=== PATIENT | male | born 1955 | race Caucasian/White ===

== ENCOUNTER 2017-05-25 14:52 | Emergency (ER) | payer OTHER ==
[2017-05-25 15:18] VITALS: BP 127/61; PULSE 95; RESP 18; TEMP 98; O2SAT 99
[2017-05-25 17:15] VITALS: BP 139/93; PULSE 90; RESP 15; O2SAT 97
[2017-05-25] MEDS ORDERED: OMEP10CA PO (17:32)
[2017-05-25] MEDS ORDERED: PRAV20TA2 PO (17:32)
[2017-05-25] MEDS ORDERED: RAMI5CAP PO (17:32)
[2017-05-25] MEDS ORDERED: ASPI-516 CHEW (17:32)
--- NOTE | 2017-05-25 18:28 | PD ---
HPI Chief Complaint: Respiratory Symptoms Time Seen by Provider: 18:07 Travel History International Travel<30 days: No Contact w/Intl Traveler<30days: No Traveled to known affect area: No History of Present Illness HPI 61yo M with PMH of anxiety, aortic aneurysm that is being monitored at 3cm and Tourett's syndrome here with c/o not being able to breathe. Said he has been feeling like this on and off for 2 years. Said he called his psychiatrist 2 days ago and was told to stop his risperdal since it was not helping. However, he did not prescribe him any other medication. Pt has appointment with his psychiatrist in August. Denies any fever, chest pain, sob, n/v, abdominal pain, focal weakness or numbness. Pt keeps saying he just needs something to calm him down. PFSH Past Medical History Anxiety: Yes Cardiovascular Problems: Yes (AORTIC ANEURYSM) Past Surgical History Joint Replacement: Yes (RIGHT HIP REP) Tonsillectomy: Yes Social History Alcohol Use: No (QUIT MAR) Tobacco Use: No Substance Use: No Allergies-Medications (Allergen,Severity, Reaction): Coded Allergies: No Known Allergies (Unverified , 05/25/17) Reported Meds & Prescriptions Reported Meds & Active Scripts Active Vistaril (Hydroxyzine Pamoate) 50 Mg Cap 50 Mg PO BID 5 Days Reported Pravastatin 20 Mg Tab 20 Mg PO DAILY Omeprazole 10 Mg Cap 10 Mg PO DAILY Ramipril 5 Mg Cap 5 Mg PO DAILY Aspirin 81 Mg Chew 81 Mg CHEW DAILY Review of Systems Except as stated in HPI: all other systems reviewed are Neg Physical Exam Narrative GENERAL: 61 SKIN: Focused skin assessment warm/dry. HEAD: Atraumatic. Normocephalic. EYES: Pupils equal and round. No scleral icterus. No injection or drainage. ENT: No nasal bleeding or discharge. Mucous membranes pink and moist. NECK: Trachea midline. No JVD. CARDIOVASCULAR: Regular rate and rhythm. No murmur appreciated. RESPIRATORY: No accessory muscle use. Clear to auscultation. Breath sounds equal bilaterally. GASTROINTESTINAL: Abdomen soft, non-tender, nondistended. Hepatic and splenic margins not palpable. MUSCULOSKELETAL: No obvious deformities. No clubbing. No cyanosis. No edema. NEUROLOGICAL: Awake and alert. No obvious cranial nerve deficits. Motor grossly within normal limits. Normal speech. PSYCHIATRIC: Appropriate mood and affect; insight and judgment normal. Data Data Last Documented VS Vital Signs Date Time Temp Pulse Resp B/P (MAP) Pulse Ox O2 Delivery O2 Flow Rate FiO2 05/25/17 20:21 05/25/17 17:15 96 05/25/17 17:15 15 97 Room Air 05/25/17 15:18 98.0 Orders Orders Electrocardiogram (05/25/17 ) Lorazepam (Ativan) (05/25/17 18:30) Chest, Single Ap (05/25/17 ) Ed Discharge Order (05/25/17 19:30) [facility] Medical Decision Making Medical Screen Exam Complete: Yes Emergency Medical Condition: Yes Interpretation(s) EKG: NSR 91bpm. LAD. RBBB. Differential Diagnosis Anxiety vs. pneumonia vs. bronchitis Narrative Course 61yo M with history of anxiety here with symptoms consistent with panic attack. Pt given ativan 1mg PO and feels better. CXR negative. Vital signs normal. Will give him something for anxiety for a few days. Pt to follow up with psychiatrist. Return precautions given. Diagnosis Primary Impression: Anxiety Patient Instructions: General Instructions Departure Forms: Tests/Procedures Additional Instructions: Please follow up with your psychiatrist in 2-3 days. Return to the ED if symptoms worsen. Med/Other Pt SpecificInfo: Prescription(s) given Scripts Hydroxyzine Pamoate (Vistaril) 50 Mg Cap 50 MG PO BID for Anxiety for 5 Days, #10 CAP 0 Refills Prov: Gauri Roldan 05/25/17 Disposition: 01 DISCHARGE HOME Condition: Stable RoldanShilpa katztangela DONG May 25, 2017 18:28
[2017-05-25] MEDS ORDERED: LORazepam 1 MG TAB PO ONE (18:30)
--- NOTE | 2017-05-25 19:13 | RADRPT ---
EXAM DATE/TIME: 05/25/2017 18:29 [facility] COMPARISON: No previous studies available for comparison. INDICATIONS : Shortness of breath. MEDICAL HISTORY : None. SURGICAL HISTORY : None. ENCOUNTER: Initial ACUITY: 1 day PAIN SCORE: 0/10 LOCATION: Bilateral chest FINDINGS: A single view of the chest demonstrates the lungs to be symmetrically aerated without evidence of mas s, infiltrate or effusion. The cardiomediastinal contours are unremarkable. Osseous structures are intact. CONCLUSION: No acute disease. Tom Coates MD on May 25, 2017 at 19:10 Board Certified Radiologist. This report was verified electronically.
[2017-05-25] MEDS ORDERED: VIST50CA PO (19:19)
--- NOTE | 2017-05-26 19:22 | EKG ---
Date Performed: 05/25/2017 Time Performed: 17:28:09 PTAGE: 61 years EKG: Sinus rhythm RIGHT BUNDLE BRANCH BLOCK LEFT ANTERIOR FASCICULAR BLOCK MODERATE VOLTAGE CRITERIA FOR LVH, CONSIDER NORMAL VARIANT POSSIBLE SEPTAL MYOCARDIAL INFARCTION ABNORMAL ECG NO PREVIOUS TRACING DOCTOR: Stephanie Bro Interpretating Date/Time 05/26/2017 19:18:51
== END 2017-05-25 20:52 | disposition home or self-care (01) ==
LOC: NEPE 14:52
DX: F41.0 Panic disorder [episodic paroxysmal anxiety] (principal); F41.9 Anxiety disorder, unspecified; I45.10 Unspecified right bundle-branch block; Z79.82 Long term (current) use of aspirin; Z79.899 Other long term (current) drug therapy
CPT/HCPCS: 71045; 93005

== ENCOUNTER 2017-05-28 12:41 | Emergency (ER) | payer OTHER ==
[~2017-05-28 12:41] MED LIST: ASPI-516 CHEW; OMEP10CA PO; PRAV20TA2 PO; RAMI5CAP PO; VIST50CA PO
[2017-05-28 12:43] VITALS: BP 157/97; PULSE 91; RESP 24; TEMP 97.8; O2SAT 100
--- NOTE | 2017-05-28 13:16 | RADRPT ---
EXAM DATE/TIME: 05/28/2017 13:06 [facility] COMPARISON: No previous studies available for comparison. INDICATIONS : Short of breath with wheezing MEDICAL HISTORY : Congestive heart failure. SURGICAL HISTORY : None. ENCOUNTER: Initial ACUITY: 1 day PAIN SCORE: 110 LOCATION: Bilateral chest FINDINGS: PA and lateral views of the chest demonstrate the lungs to be symmetrically aerated without evidence of mass, infiltrate or effusion. The cardiomediastinal contours are unremarkable. Osseous structure s are intact. CONCLUSION: No acute disease. Claudio Wright MD on May 28, 2017 at 13:13 Board Certified Radiologist. This report was verified electronically.
[2017-05-28 14:56] LABS: AUTOMATED NEUTROPHIL # 6.2 TH/MM3 (1.8-7.7); BASOPHIL # 0.1 TH/MM3 (0-0.2); EOSINOPHIL # 0.1 TH/MM3 (0-0.4); EOSINOPHIL % 1.3 % (0.0-4.0); HEMATOCRIT 47.8 % (39.0-51.0); HEMOGLOBIN 17.3 GM/DL (13.0-17.0); LYMPH % 17.6 % (9.0-44.0); LYMPHOCYTE # 1.5 TH/MM3 (1.0-4.8); MEAN CELL VOLUME 86.1 FL (80.0-100.0); MEAN CORPUSCULAR HEMOGLOBIN 31.2 PG (27.0-34.0); MEAN PLATELET VOLUME 9.3 FL (7.0-11.0); MONO % 6.4 % (0.0-8.0); MONOCYTE # 0.5 TH/MM3 (0-0.9); NEUT % 73.7 % (16.0-70.0); PLATELET COUNT 186 TH/MM3 (150-450); RED BLOOD COUNT 5.56 MIL/MM3 (4.50-5.90); RED CELL DISTRIBUTION WIDTH 13.6 % (11.6-17.2); WHITE BLOOD COUNT 8.4 TH/MM3 (4.0-11.0)
[2017-05-28 14:58] LABS: MEAN CORPUSCULAR HGB CONC 36.2 % (32.0-36.0)
[2017-05-28 15:00] LABS: ALBUMIN 4.4 GM/DL (3.4-5.0); AST (GOT) 41 U/L (15-37); BICARBONATE 20.8 MEQ/L (21.0-32.0); BLOOD UREA NITROGEN 20 MG/DL (7-18); CALCIUM 9.2 MG/DL (8.5-10.1); CHLORIDE 111 MEQ/L (98-107); CREATININE 1.09 MG/DL (0.60-1.30); GLOMERULAR FILTRATION RATE 68 ML/MIN (>89); GLUCOSE,RANDOM 105 MG/DL (74-106); SODIUM (NA) 143 MEQ/L (136-145)
[2017-05-28 15:05] LABS: ALKALINE PHOSPHATASE 54 U/L (45-117); ALT (GPT) 135 U/L (12-78); TOTAL BILIRUBIN ADULT 1.1 MG/DL (0.2-1.0); TOTAL PROTEIN 7.7 GM/DL (6.4-8.2); TROPONIN I LESS THAN 0.02 NG/ML (0.02-0.05)
[2017-05-28 19:18] VITALS: BP 136/84; PULSE 84; RESP 20; O2SAT 96
[2017-05-28] MEDS ORDERED: XANA1TAB2 PO (19:23)
--- NOTE | 2017-05-28 19:57 | PD ---
HPI Chief Complaint: Respiratory Symptoms Time Seen by Provider: 19:11 Travel History International Travel<30 days: No Contact w/Intl Traveler<30days: No Traveled to known affect area: No History of Present Illness HPI 61 YO M with PMH of anxiety, Tourette's, CHF presents to the ED for evaluation one month history of shortness of breath. Gradual onset. Patient denies fever , chills, cough, chest pain, palpitations, abdominal pain, nausea, vomiting, lower extremity pain or edema. He endorses a long car ride, drove from [place] to [place] in late April. He endorses 30 pack year smoking history, quit ~ 20 years ago. He was seen in the ED last week, diagnosed with anxiety [facility] Past Medical History Anxiety: Yes Cardiovascular Problems: Yes Diabetes: No Patient Takes Glucophage: No Diminished Hearing: No Medical other: Yes (AA) Neurologic: Yes (TURRETTES) Immunizations Current: Yes Tetanus Vaccination: < 5 Years Influenza Vaccination: Yes Past Surgical History Joint Replacement: Yes (RIGHT HIP REP) Tonsillectomy: Yes Social History Alcohol Use: No (QUIT MAR) Tobacco Use: No Substance Use: No Allergies-Medications (Allergen,Severity, Reaction): Coded Allergies: No Known Allergies (Unverified , 05/25/17) Reported Meds & Prescriptions Reported Meds & Active Scripts Active Vistaril (Hydroxyzine Pamoate) 50 Mg Cap 50 Mg PO BID 5 Days Reported Xanax (Alprazolam) 1 Mg Tab 1 Mg PO BID PRN Pravastatin 20 Mg Tab 20 Mg PO DAILY Omeprazole 10 Mg Cap 10 Mg PO DAILY Ramipril 5 Mg Cap 5 Mg PO DAILY Aspirin 81 Mg Chew 81 Mg CHEW DAILY Review of Systems Except as stated in HPI: all other systems reviewed are Neg Physical Exam Narrative GENERAL: Well-nourished, well-developed anxious white male in no acute distress. SKIN: Focused skin assessment warm/dry. HEAD: Normocephalic. EYES: No scleral icterus. No injection or drainage. NECK: Supple, trachea midline. No JVD or lymphadenopathy. CARDIOVASCULAR: Regular rate and rhythm without murmurs, gallops, or rubs. RESPIRATORY: Breath sounds clear and equal bilaterally. No accessory muscle use. GASTROINTESTINAL: Abdomen soft, non-tender, nondistended. Active bowel sounds. MUSCULOSKELETAL: No cyanosis, or edema. Homans sign negative bilaterally. BACK: Nontender without obvious deformity. No CVA tenderness. Data Data Last Documented VS Vital Signs Date Time Temp Pulse Resp B/P (MAP) Pulse Ox O2 Delivery O2 Flow Rate FiO2 05/28/17 23:04 05/28/17 19:18 84 20 96 Room Air 05/28/17 12:43 97.8 Orders Orders Electrocardiogram (05/28/17 12:45) Ckmb (Isoenzyme) Profile (05/28/17 12:45) Complete Blood Count With Diff (05/28/17 12:45) Comprehensive Metabolic Panel (05/28/17 12:45) Troponin I (05/28/17 12:45) Lipase (05/28/17 12:45) Chest, Pa & Lat (05/28/17 12:45) CKMB (05/28/17 13:10) CKMB% (05/28/17 13:10) B-Type Natriuretic Peptide (05/28/17 19:38) Ct Pulmonary Angiogram (05/28/17 19:38) Lorazepam Inj (Ativan Inj) (05/28/17 20:00) Lorazepam Inj (Ativan Inj) (05/28/17 20:00) Lorazepam Inj (Ativan Inj) (05/28/17 20:00) Iohexol 350 Inj (Omnipaque 350 Inj) (05/28/17 21:59) Ed Discharge Order (05/28/17 22:58) Labs Laboratory Tests Test 05/28/17 13:10 White Blood Count 8.4 TH/MM3 Red Blood Count 5.56 MIL/MM3 Hemoglobin 17.3 GM/DL Hematocrit 47.8 % Mean Corpuscular Volume 86.1 FL Mean Corpuscular Hemoglobin 31.2 PG Mean Corpuscular Hemoglobin Concent 36.2 % Red Cell Distribution Width 13.6 % Platelet Count 186 TH/MM3 Mean Platelet Volume 9.3 FL Neutrophils (%) (Auto) 73.7 % Lymphocytes (%) (Auto) 17.6 % Monocytes (%) (Auto) 6.4 % Eosinophils (%) (Auto) 1.3 % Basophils (%) (Auto) 1.0 % Neutrophils # (Auto) 6.2 TH/MM3 Lymphocytes # (Auto) 1.5 TH/MM3 Monocytes # (Auto) 0.5 TH/MM3 Eosinophils # (Auto) 0.1 TH/MM3 Basophils # (Auto) 0.1 TH/MM3 CBC Comment AUTO DIFF Differential Comment AUTO DIFF CONFIRMED Platelet Estimate NORMAL Platelet Morphology Comment NORMAL Red Cell Morphology Comment NORMAL Blood Urea Nitrogen 20 MG/DL Creatinine 1.09 MG/DL Random Glucose 105 MG/DL Total Protein 7.7 GM/DL Albumin 4.4 GM/DL Calcium Level 9.2 MG/DL Alkaline Phosphatase 54 U/L Aspartate Amino Transf (AST/SGOT) 41 U/L Alanine Aminotransferase (ALT/SGPT) 135 U/L Total Bilirubin 1.1 MG/DL Sodium Level 143 MEQ/L Potassium Level 3.8 MEQ/L Chloride Level 111 MEQ/L Carbon Dioxide Level 20.8 MEQ/L Anion Gap 11 MEQ/L Estimat Glomerular Filtration Rate 68 ML/MIN Total Creatine Kinase 143 U/L Creatine Kinase MB 0.8 NG/ML Troponin I LESS THAN 0.02 NG/ML B-Type Natriuretic Peptide 3 PG/ML Lipase 241 U/L [facility] Medical Decision Making Medical Screen Exam Complete: Yes Emergency Medical Condition: Yes Differential Diagnosis PNA versus COPD versus PE versus anxiety versus ACS versus other Narrative Course 61-year-old male with PMH of Tourette's, anxiety, CHF presents to the ED for evaluation of one month plus history of worsening shortness of breath. He was seen in the ED last week, [facility] and sent back to the ED today. On exam the patient is afebrile, pulse 91, BP 157/97, O2 sats on her percent on room air with respiratory rate of 24. The patient is nontoxic appearing, chest is CTAB. Abdomen soft and nontender. Homans sign negative bilaterally. Patient was administered 2 mg Ativan IM. [facility] the [facility]. EKG rate 79, sinus rhythm. NH interval 153, QRS 154, QTc 447 ms. Normal axis. Right bundle branch block. Similar to previous EKG 05/25/17. CXR: No acute disease. Cardiac enzymes negative 1. BNP 3 CTA: Negative for pulmonary embolism. Moderate coronary calcifications. CBC: WBC 84, hemoglobin 17.3. CMP: BUN 20, creatinine 109. Bilirubin 1.1. AST 41. ALT 135. Lipase: 241. On recheck the patient reports improvement of his symptoms. I discussed the results of the workup with the patient. He is instructed to follow-up with the commodity lead and primary care. He is provided a copy of the CT and x-ray report. He is agreeable to care plan. He is stable and discharged home. Diagnosis Primary Impression: Anxiety Additional Impression: Shortness of breath at rest Referrals: [facility] Additional Instructions: Rest, hydrate. Return to normal, gentle activities as tolerated. Continue antianxiety medications as prescribed. Follow up with the commodity lead for further evaluation. Return to the ED for any urgent or emergent medical condition. Disposition: 01 DISCHARGE HOME Condition: Stable Akila Leone May 28, 2017 19:57
[2017-05-28] MEDS ORDERED: LORazepam 2 MG/ML VIAL IV PUSH ONE (20:00)
[2017-05-28] MEDS ORDERED: LORazepam 2 MG/ML VIAL IM ONE ×2 (20:00)
[2017-05-28] MEDS ORDERED: IOHEXOL 350 MG/ML 10 ML VIAL (for RAD DIAG) IVCONTRAST ONE (21:59)
--- NOTE | 2017-05-28 22:19 | RADRPT ---
EXAM DATE/TIME: 05/28/2017 21:46 [facility] COMPARISON: No previous studies available for comparison. INDICATIONS : Shortness of breath. IV CONTRAST: 75 cc Omnipaque 350 (iohexol) IV RADIATION DOSE: 10.25 CTDIvol (mGy) MEDICAL HISTORY : Cardiovascular disease. SURGICAL HISTORY : None. ENCOUNTER: Initial ACUITY: 1 day PAIN SCALE: 5/10 LOCATION: Bilateral chest TECHNIQUE: Volumetric scanning of the chest was performed using a pulmonary embolism protocol MIP images were re constructed. Using automated exposure control and adjustment of the mA and/or kV according to patien t size, radiation dose was kept as low as reasonably achievable to obtain optimal diagnostic quality images. DICOM format image data is available electronically for review and comparison. Follow-up recommendations for detected pulmonary nodules are based at a minimum on nodule size and pa tient risk factors according to Fleischner Society Guidelines. FINDINGS: No filling defects identified to suggest pulmonary embolic disease. Moderate coronary artery calcific ations. No lung consolidation. No effusions. No acute findings in the upper abdomen. CONCLUSION: 1. Negative for pulmonary embolism. Moderate coronary calcifications. Tom Coates MD on May 28, 2017 at 22:13 Board Certified Radiologist. This report was verified electronically.
--- NOTE | 2017-05-29 15:46 | EKG ---
Date Performed: 05/28/2017 Time Performed: 20:06:55 PTAGE: 61 years EKG: Sinus rhythm RIGHT BUNDLE BRANCH BLOCK LEFT ANTERIOR FASCICULAR BLOCK MODERATE VOLTAGE CRITERIA FOR LVH, CONSIDER NORMAL VARIANT POSSIBLE SEPTAL MYOCARDIAL INFARCTION ABNORMAL ECG Since the PREVIOUS TRACING , no significant change noted PREVIOUS TRACIN05/25/2017 17.28 DOCTOR: Aly Del Rio Interpretating Date/Time 05/29/2017 15:41:55
== END 2017-05-28 23:17 | disposition home or self-care (01) ==
LOC: NED 12:41 → NEPE 23:17
DX: F41.9 Anxiety disorder, unspecified (principal); I50.9 Heart failure, unspecified; Z87.891 Personal history of nicotine dependence
CPT/HCPCS: 71046; 71275; 80053; 82550; 82552; 83690; 83880; 84484; 85025; 93005; 96372; 96374; 99285; J2060; Q9967; 85610; 85730